=== PATIENT | female | born 1960 | race Caucasian/White ===

== ENCOUNTER 2019-02-06 05:43 | Emergency (ER) | payer SELFPAY ==
[2019-02-06 06:55] LABS: ABSOLUTE EOSINOPHILS # (AUTO) 0.1 10^3/uL (0.0-0.6); ABSOLUTE LYMPHOCYTES (AUTO) 1.1 10^3/uL (0.5-4.7); ABSOLUTE MONOCYTES (AUTO) 0.4 10^3/uL (0.1-1.4); ABSOLUTE NEUT (AUTO) 8.8 10^3/uL (1.7-8.2); BASOPHILS % (AUTO) 0.3 % (0-2); HEMATOCRIT 38.4 % (36.0-47.0); HEMOGLOBIN 12.9 g/dL (12.0-15.5); LYMPHOCYTES % (AUTO) 10.5 % (13-45); MEAN CORPUSCULAR HEMOGLOBIN 29.8 pg (27.0-33.4); MEAN CORPUSCULAR HGB CONC 33.6 g/dL (32.0-36.0); MEAN CORPUSCULAR VOLUME 89 fl (80-97); MONOCYTES % (AUTO) 4.3 % (3-13); PLATELET COUNT 241 10^3/uL (150-450); RED BLOOD COUNT 4.33 10^6/uL (3.72-5.28); RED CELL DISTRIBUTION WIDTH 13.2 % (11.5-14.0); SEGMENTED NEUTROPHILS % (AUTO) 83.9 % (42-78); TOTAL CELLS COUNTED % (AUTO) 100 %; WHITE BLOOD COUNT 10.4 10^3/uL (4.0-10.5)
[2019-02-06 06:59] LABS: APPEARANCE,URINE CLEAR; BILIRUBIN,URINE NEGATIVE (NEGATIVE); COLOR,URINE YELLOW; GLUCOSE, URINE NEGATIVE (NEGATIVE); KETONES,URINE NEGATIVE (NEGATIVE); LEUKOCYTE ESTERASE,URINE NEGATIVE (NEGATIVE); NITRITE,URINE NEGATIVE (NEGATIVE); PROTEIN,URINE NEGATIVE (NEGATIVE); URINE SPECIFIC GRAVITY 1.017; UROBILINOGEN,URINE NEGATIVE mg/dL (<2.0)
[2019-02-06 07:18] LABS: ALBUMIN 4.3 g/dL (3.5-5.0); ALKALINE PHOSPHATASE 55 U/L (38-126); ANION GAP 7 (5-19); ASPARTATE AMINO TRANSFERASE 23 U/L (14-36); BILIRUBIN,DIRECT 0.2 mg/dL (0.0-0.4); BILIRUBIN,TOTAL 0.3 mg/dL (0.2-1.3); BLOOD UREA NITROGEN 18 mg/dL (7-20); CALCIUM 9.6 mg/dL (8.4-10.2); CARBON DIOXIDE 25 mmol/L (22-30); CHLORIDE 109 mmol/L (98-107); GLUCOSE 117 mg/dL (75-110); POTASSIUM 4.5 mmol/L (3.6-5.0)
[2019-02-06] MEDS ORDERED: DIPHENHYDRAMINE HCL 50 MG/ML VIAL IV ONE (09:58)
[2019-02-06] MEDS ORDERED: PROCHLORPERAZINE EDISYLATE INJ 10 MG/2 ML VIAL IV ONE (09:58)
[2019-02-06] MEDS ORDERED: NORMAL SALINE 1000 ML 1,000 ML IV ONE (09:58)
--- NOTE | 2019-02-06 11:27 | RADIOLOGY REPORT (SQ) ---
EXAM DESCRIPTION: CTA HEAD COMPLETED DATE/TIME: 02/06/2019 10:47 am REASON FOR STUDY: extreme headache starting at 330am, r/o SAH COMPARISON: None. TECHNIQUE: Axial images acquired through the brain without and with intravenous contrast. Images re viewed with bone, brain and subdural windows. Images stored on PACS. All CT scanners at this facility use dose modulation, iterative reconstruction, and/or weight based d osing when appropriate to reduce radiation dose to as low as reasonably achievable (ALARA). [facility]: Dose Right [facility]: CareDose [facility]: Dose Right [facility]: Teradose 4D [facility]: Hugo & Debra Natural CONTRAST TYPE AND DOSE: contrast/concentration: Isovue 350.00 mg/ml; Total Contrast Delivered: 70.0 ml; Total Saline Delivered: 75.0 ml RENAL FUNCTION: GFR > 60. RADIATION DOSE: CT Rad equipment meets quality standard of care and radiation dose reduction techniq ues were employed. CTDIvol: 7.6 - 28.3 mGy. DLP: 190 mGy-cm.. LIMITATIONS: None. FINDINGS: VENTRICLES: Normal size and contour. CEREBRUM: No masses. No hemorrhage. No midline shift. Normal huang/white matter differentiation. No ev idence for acute infarction. No enhancing lesions. CEREBELLUM: No masses. No hemorrhage. No alteration of density. No evidence for acute infarction. No enhancing lesions. EXTRA-AXIAL SPACES: No fluid collections. No enhancing lesions. ORBITS AND GLOBE: No intra- or extraconal masses. Normal contour of globe without masses. CALVARIUM: No fracture. PARANASAL SINUSES: No fluid or mucosal thickening. SOFT TISSUES: No mass or hematoma. OTHER: No aneurysm or significant stenosis identified. IMPRESSION: No acute intracranial findings.No aneurysm or significant stenosis identified. EVIDENCE OF ACUTE STROKE: NO. TECHNICAL DOCUMENTATION: JOB ID: [id number] [place]-[id number] Quality ID # [id number]: Final reports with documentation of one or more dose reduction techniques (e.g., Au tomated exposure control, adjustment of the mA and/or kV according to patient size, use of iterative reconstruction technique) 2010 [employer]- All Rights Reserved Reading location - IP/workstation name: [facility]
[2019-02-06 12:01] VITALS: BP 126/70
--- NOTE | 2019-02-07 10:29 | ER Document Report ---
Entered by DAVID CHRISTINE SCRIBE 02/06/19 0958 Acting as scribe for:SNEHA TILLMAN MD ED General - General Chief Complaint: Headache <24 hrs old Stated Complaint: NAUSEA/VOMITING/HEADACHE Time Seen by Provider: 02/06/19 09:50 Notes: Patient is a 58-year-old female arriving via EMS presenting to the emergency department complaining of headache with multiple associated symptoms. Patient states that she woke up from sleep at 0330 this morning with a "screaming headache", and was profusely sweating. Patient states that she is also experiencing nausea, vomiting, diarrhea, photosensitivity. Patient states that Zofran did help her symptoms somewhat, she was given it by EMS in route to the emergency department. Patient states that she had Wolof last night and believes this may be the cause of her symptoms. Patient denies experiencing any numbness, tingling, fever, recent trauma, history of kidney problems or aneurysms, or having symptoms like this occur before. TRAVEL OUTSIDE OF THE [place] IN LAST 30 DAYS: No - Related Data Allergies/Adverse Reactions: bee stings Allergy (Uncoded 02/06/19 05:49) Past Medical History - General Information source: Patient - Social History Smoking Status: Never Smoker Cigarette use (# per day): No Chew tobacco use (# tins/day): No Frequency of alcohol use: Occasional Drug Abuse: None Family History: Reviewed & Not Pertinent Patient has suicidal ideation: No Patient has homicidal ideation: No Renal/ Medical History: Denies: Hx Peritoneal Dialysis Review of Systems - Review of Systems Constitutional: No symptoms reported. denies: Fever EENT: See HPI, Other - Photosensitivity Cardiovascular: No symptoms reported Respiratory: No symptoms reported Gastrointestinal: See HPI, Diarrhea, Nausea, Vomiting Genitourinary: No symptoms reported Female Genitourinary: No symptoms reported Musculoskeletal: No symptoms reported Skin: See HPI, Other - Diaphoresis Hematologic/Lymphatic: No symptoms reported Neurological/Psychological: No symptoms reported, Headaches. denies: Numbness, Tingling -: Yes All other systems reviewed and negative Physical Exam - Vital signs Vitals: Temp Pulse Resp BP Pulse Ox 97.4 F 69 16 136/96 H 100 02/06/19 05:50 02/06/19 05:50 02/06/19 05:50 02/06/19 05:50 02/06/19 05:50 - Notes Notes: Physical Exam: General: Alert, appears well. HEENT: Normocephalic. Atraumatic. PERRL. Extraocular movements intact. Oropharynx clear. Neck: Supple. Non-tender. Respiratory: No respiratory distress. Clear and equal breath sounds bilaterally. Cardiovascular: Regular rate and rhythm. Abdominal: Normal Inspection. Non-tender. No distension. Normal Bowel Sounds. Back: Non-tender. No deformity or step off. Extremities: Moves all four extremities. Upper extremities: Normal inspection. Normal ROM. Lower extremities: Normal inspection. No edema. Normal ROM. Neurological: Grossly neurologically intact. Normal cognition. AAOx4. Normal speech. Psychological: Normal affect. Normal Mood. Skin: Warm. Dry. Normal color. Course - Re-evaluation Re-evalutation: 02/06/19 11:52 CTA head shows no acute abnormalities including no aneurysms. Patient's headache is improved from a 5 to a1 with Compazine and Benadryl. Will be discharged at this time with Compazine prescription. Return precautions provide d 02/06/19 11:53 No fevers or recent illnesses to suggest infectious source. - Vital Signs Vital signs: Temp Pulse Resp BP Pulse Ox 97.4 F 69 16 136/96 H 100 02/06/19 05:50 02/06/19 05:50 02/06/19 05:50 02/06/19 05:50 02/06/19 05:50 - Laboratory Result Diagrams: 02/06/19 06:40 02/06/19 06:40 Laboratory results interpreted by me: 02/06/19 02/06/19 02/06/19 06:40 06:40 06:40 Seg Neutrophils % 83.9 H Lymphocytes % 10.5 L Absolute Neutrophils 8.8 H Chloride 109 H Glucose 117 H Urine Ascorbic Acid 40 H Discharge - Discharge Clinical Impression: Headache Qualifiers: Headache type: unspecified Headache chronicity pattern: acute headache Intractability: not intractable Qualified Code(s): R51 - Headache Condition: Good Disposition: HOME, SELF-CARE Instructions: Headache ([facility]) Prescriptions: Prochlorperazine Maleate [Compazine 10 mg Tablet] 10 mg PO ASDIR PRN #10 tablet PRN Reason: I personally performed the services described in the documentation, reviewed and edited the documentation which was dictated to the scribe in my presence, and it accurately records my words and actions.
== END 2019-02-06 12:13 | disposition home or self-care (01) ==
LOC: ER 05:43
DX: R51 Headache (principal); R61 Generalized hyperhidrosis; R11.2 Nausea with vomiting, unspecified; R19.7 Diarrhea, unspecified; H53.149 Visual discomfort, unspecified; Z91.030 Bee allergy status
CPT/HCPCS: 99284; 96361; 96374; 96375; 36415; 85025; 80053; 81001; 70496; J1200; J0780; J7030